=== PATIENT | female | born 1965 | race Caucasian/White ===

== ENCOUNTER 2018-06-10 09:32 | Day surgery (SDC) | payer OTHER, BC ==
[2018-06-10] MEDS ORDERED: FENTAnyl 50 MCG/ML VIAL (12:14)
[2018-06-10] MEDS ORDERED: MIDAZOLAM 1 MG/ML 2 ML INJ ×2 (12:14)
== END 2018-06-10 14:41 | disposition home or self-care (01) ==
LOC: GIL 09:32
DX: Z12.11 Encounter for screening for malignant neoplasm of colon (principal); K64.8 Other hemorrhoids; K57.30 Diverticulosis of large intestine without perforation or abscess without bleeding
CPT/HCPCS: 45378